=== PATIENT | female | born 1995 ===

== ENCOUNTER 2018-02-14 19:46 | Emergency (ER) | payer SELFPAY ==
[2018-02-14 20:00] VITALS: RESP 18; O2SAT 100
[2018-02-14 20:13] LABS: HCG,QUALITATIVE URINE NEGATIVE (NEGATIVE)
[2018-02-14 20:16] LABS: SQUAMOUS EPITHIAL 5 /hpf (0-5); URINE BACTERIA OCC (<OCC); URINE BILIRUBIN NEGATIVE (NEGATIVE); URINE BLOOD NEGATIVE (NEGATIVE); URINE CLARITY Hazy (Clear); URINE COLOR Yellow (YELLOW); URINE GLUCOSE (UA) NORMAL (Normal); URINE LEUKOCYTE ESTERASE TRACE Leu/uL (Negative); URINE PROTEIN NEGATIVE (NEGATIVE); URINE UROBILINOGEN NORMAL mg/dL (0.2-1.0)
[2018-02-14] MEDS ORDERED: Sodium Chloride 0.9% 1,000 ML IV ONE (20:51)
--- NOTE | 2018-02-14 21:01 | C.PDOC ---
History Of Present Illness 22 year old female presents to the ED c/o fever, nausea, vomit, abdominal pain and back pain for the past 2 days. Patient states back pain feels like someone is hitting her, mostly located in the mid back and on the right side. Patient also c/o nausea, vomit and abdominal pain as well that has not allowed her to eat anything today. Patient states she measured her temperature once at home and it was 100.4, took Tylenol at 15:00 today. Patient's LMP was on 01/19/18. Patient denies alcohol, drug and cigarette use. Patient denies diarrhea, weakness, numbness, urinary/bowel incontinence, saddle anesthesia. Time Seen by Provider: 02/14/18 20:22 Chief Complaint (Nursing): Fever History Per: Patient History/Exam Limitations: no limitations Onset/Duration Of Symptoms: Days Current Symptoms Are (Timing): Still Present Sick Contacts (Context): None Associated Symptoms: Fever, Vomiting Ear Symptoms: Bilateral: None Recent travel outside of the [place]: No Additional History Per: Patient Past Medical History Reviewed: Historical Data, Nursing Documentation, Vital Signs Vital Signs: Last Vital Signs Temp 98.3 F 02/14/18 19:57 Pulse 112 H 02/14/18 19:57 Resp 18 02/14/18 19:57 BP 102/64 02/14/18 19:57 Pulse Ox 100 02/14/18 19:57 - Medical History PMH: No Chronic Diseases Surgical History: No Surg Hx Family History: States: Unknown Family Hx - Social History Hx Alcohol Use: No Hx Substance Use: No - Immunization History Hx Tetanus Toxoid Vaccination: No Hx Influenza Vaccination: No Hx Pneumococcal Vaccination: No Review Of Systems Constitutional: Positive for: Fever. Negative for: Chills Cardiovascular: Negative for: Chest Pain Respiratory: Negative for: Cough, Shortness of Breath Gastrointestinal: Positive for: Vomiting, Abdominal Pain Genitourinary: Positive for: Dysuria Musculoskeletal: Positive for: Back Pain Skin: Negative for: Rash Neurological: Negative for: Weakness, Numbness Physical Exam - Physical Exam Appears: Non-toxic, No Acute Distress Skin: Normal Color, Warm, Dry Head: Atraumatic, Normacephalic Eye(s): bilateral: Normal Inspection Ear(s): Bilateral: Normal Nose: No Discharge Oral Mucosa: Moist Throat: Normal, No Erythema, No Exudate Chest: Symmetrical Cardiovascular: Rhythm Regular (tachycardic), No Murmur Respiratory: Normal Breath Sounds, No Rales, No Rhonchi, No Wheezing Gastrointestinal/Abdominal: Soft, No Tenderness, No Guarding, No Rebound Back: No CVA Tenderness, No Vertebral Tenderness, Paraspinal Tenderness (diffuse ) Extremity: Normal ROM, No Tenderness, No Swelling Neurological/Psych: Oriented x3, Normal Speech, Normal Cognition, Normal Motor, Normal Sensation Gait: Steady ED Course And Treatment O2 Sat by Pulse Oximetry: 100 (ON RA) Pulse Ox Interpretation: Normal Medical Decision Making Medical Decision Making: Impression: back pain, abdominal pain, fever Plan: * Labs * Reglan 10 mg IVP * Urine culture * UA Disposition - Disposition Referrals: Non [facility] Provider, [Primary Care Provider] - - PA / YIELD LOSS INSPECTOR / Resident Statement MD/DO has reviewed & agrees with the documentation as recorded. - Scribe Statement The provider has reviewed the documentation as recorded by the Scribe Kelechi Gaston All medical record entries made by the Scribe were at my direction and personally dictated by me. I have reviewed the chart and agree that the record accurately reflects my personal performance of the history, physical exam, medical decision making, and the department course for this patient. I have also personally directed, reviewed, and agree with the discharge instructions and disposition.
[2018-02-14] MEDS ORDERED: Sodium Chloride 0.9% 1,000 ML ONE (21:06)
[2018-02-14 21:11] LABS: BASO # 0.1 K/uL (0.0-0.2); BASO % 0.5 % (0.0-2.0); HEMOGLOBIN 13.2 g/dL (11.0-16.0); LYMPH # 1.8 K/uL (1.0-4.3); LYMPH % 10.9 % (20.0-40.0); MEAN CORPUSCULAR HEMOGLOBIN 29.4 pg (27.0-31.0); MEAN CORPUSCULAR HGB CONC 34.2 g/dL (33.0-37.0); MEAN PLATELET VOLUME 7.3 fL (7.2-11.7); MONO # 1.2 K/uL (0.0-0.8); MONO % 7.1 % (0.0-10.0); NEUT # 13.2 K/uL (1.8-7.0); NEUT % 81.5 % (50.0-75.0); RBC 4.5 Mil/uL (3.80-5.20); RED CELL DISTRIBUTION WIDTH 12.7 % (11.5-14.5); WHITE BLOOD COUNT 16.2 K/uL (4.8-10.8)
--- NOTE | 2018-02-14 21:18 | C.PDOC ---
History Of Present Illness <Alfreda Szymanski - Last Filed: 02/14/18 22:34> <Chris Armas - Last Filed: 02/14/18 23:52> 22 year old female presents to the ED c/o fever, nausea, vomit, abdominal pain and back pain for the past 2 days. Patient states back pain feels like someone is hitting her, mostly located in the mid back and on the right side. Patient also c/o nausea, vomit and abdominal pain as well that has not allowed her to eat anything today. Patient states she measured her temperature once at home and it was 100.4, took Tylenol at 15:00 today. Patient's LMP was on 01/19/18. Patient denies alcohol, drug and cigarette use. Patient denies diarrhea, weakness, numbness, urinary/bowel incontinence, saddle anesthesia. (Alfreda Szymanski) History Per: Patient History/Exam Limitations: no limitations Onset/Duration Of Symptoms: Days Current Symptoms Are (Timing): Still Present Location Of Pain: Throat, Diffuse Myalgias Sick Contacts (Context): None Associated Symptoms: Fever, Nasal Congestion Ear Symptoms: Bilateral: None Recent travel outside of the [place]: No Additional History Per: Patient <Alfreda Szymanski - Last Filed: 02/14/18 22:34> <Chris Armas - Last Filed: 02/14/18 23:52> Time Seen by Provider: 02/14/18 20:22 Chief Complaint (Nursing): Fever Past Medical History Reviewed: Historical Data, Nursing Documentation, Vital Signs - Medical History PMH: No Chronic Diseases Surgical History: No Surg Hx Family History: States: Unknown Family Hx - Social History Hx Alcohol Use: No Hx Substance Use: No - Immunization History Hx Tetanus Toxoid Vaccination: No Hx Influenza Vaccination: No Hx Pneumococcal Vaccination: No <Alfreda Szymanski - Last Filed: 02/14/18 22:34> Vital Signs: Last Vital Signs Temp 98.3 F 02/14/18 19:57 Pulse 112 H 02/14/18 19:57 Resp 18 02/14/18 19:57 BP 102/64 02/14/18 19:57 Pulse Ox 100 02/14/18 22:34 Review Of Systems Constitutional: Positive for: Fever Cardiovascular: Negative for: Chest Pain Respiratory: Negative for: Shortness of Breath Gastrointestinal: Positive for: Nausea, Vomiting, Abdominal Pain Musculoskeletal: Positive for: Back Pain Skin: Negative for: Rash Neurological: Negative for: Weakness, Numbness <Alfreda Szymanski - Last Filed: 02/14/18 22:34> Physical Exam - Physical Exam Appears: Non-toxic, No Acute Distress (uncomfortable) Skin: Normal Color, Warm, Dry Head: Atraumatic, Normacephalic Eye(s): bilateral: Normal Inspection Ear(s): Bilateral: Normal Nose: No Discharge Oral Mucosa: Moist Throat: Normal, No Erythema, No Exudate Neck: Normal ROM, Supple Chest: Symmetrical Cardiovascular: Rhythm Regular, No Murmur Respiratory: Normal Breath Sounds, No Rales, No Rhonchi, No Wheezing Gastrointestinal/Abdominal: Soft, No Tenderness, No Guarding, No Rebound Back: No CVA Tenderness, No Vertebral Tenderness, Paraspinal Tenderness ( bilateral) Extremity: Normal ROM Neurological/Psych: Oriented x3, Normal Speech, Normal Cognition Gait: Steady <Alfreda Szymanski - Last Filed: 02/14/18 22:34> ED Course And Treatment - Laboratory Results Result Diagrams: 02/14/18 21:01 02/14/18 21:01 O2 Sat by Pulse Oximetry: 100 (On RA) Pulse Ox Interpretation: Normal <Alfreda Szymanski - Last Filed: 02/14/18 22:34> - Laboratory Results Result Diagrams: 02/14/18 21:01 02/14/18 21:01 Lab Interpretation: Abnormal (UA 10 WBC's,) Urine POC: Negative - CT Scan/US CT Abdomen& Pelvis Other Rad Studies (CT/US): Read By Radiologist, Radiology Report Reviewed CT/US Interpretation: IMPRESSION: Faint hypoattenuating wedge-shaped area in the lateral left kidney with haziness in the adjacent fat. Finding suggest pyelonephritis. Recommend correlation with urinalysis. Progress Note: signed over @ 2230 to f/u CT for L flank pain. CT ? c/w pyelonephritis, pt with leukocytosis of 16K and only 10 WBC's in urine. Will treat empirically with Keflex for 10 days. U-cult sent <Chris Armas - Last Filed: 02/14/18 23:52> Medical Decision Making <Alfreda Szymanski - Last Filed: 02/14/18 22:34> <Chris Armas - Last Filed: 02/14/18 23:52> Medical Decision Making: Impression: back pain, abdominal pain, fever Plan: Labs Reglan 10 mg IVP Urine culture UA (Alfreda Szymanski) Disposition <Alfreda Szymanski - Last Filed: 02/14/18 22:34> Doctor Will See Patient In The: Office Counseled Patient/Family Regarding: Studies Performed, Diagnosis - Disposition Disposition Time: 23:51 <Chris Armas - Last Filed: 02/14/18 23:52> - Disposition Referrals: Non [facility] Provider, [Primary Care Provider] - Disposition: HOME/ ROUTINE Condition: GOOD Forms: [facility] (Bengali) - Clinical Impression Clinical Impression: Flank pain - PA / TAPPER SUPERVISOR / Resident Statement MD/DO has reviewed & agrees with the documentation as recorded. - Scribe Statement The provider has reviewed the documentation as recorded by the Scribe <Alfreda Szymanski - Last Filed: 02/14/18 22:34> <Chris Armas - Last Filed: 02/14/18 23:52> - Scribe Statement Kelechi Gaston All medical record entries made by the Scribe were at my direction and personally dictated by me. I have reviewed the chart and agree that the record accurately reflects my personal performance of the history, physical exam, medical decision making, and the department course for this patient. I have also personally directed, reviewed, and agree with the discharge instructions and disposition. (Alfreda Szymanski)
[2018-02-14 21:20] LABS: ALB/GLOB RATIO 1.1 (1.0-2.1); ALBUMIN 4.4 g/dL (3.5-5.0); ALT/SGPT 16 U/L (9-52); AST/SGOT 17 U/L (14-36); BLOOD UREA NITROGEN 10 mg/dL (7-17); CALCIUM 9.2 mg/dl (8.6-10.4); GFR AFRICAN-AMERICAN > 60; GFR NON-AFRICAN AMERICAN > 60; LIPASE 36 U/L (23-300)
[2018-02-14] MEDS ORDERED: Iohexol 240 (50 ml) PO STA (21:26)
[2018-02-14] MEDS ORDERED: Iohexol 240 (50 ml) ONE (21:39)
[2018-02-14] MEDS ORDERED: Iodixanol 320 MG/ML 100 ML BOTTLE IV ONE (21:53)
--- NOTE | 2018-02-14 23:40 | CT ---
EXAM: CT Abdomen and Pelvis With Intravenous Contrast EXAM DATE/TIME: 02/14/2018 9:27 PM CLINICAL HISTORY: 22 years old, female; Pain; Abdominal pain; Epigastric; Additional info: Bilateral back pain. Elevated wbc TECHNIQUE: Axial computed tomography images of the abdomen and pelvis with intravenous contrast. All CT scans at this facility use one or more dose reduction techniques, viz.: automated exposure control; ma/kV adjustment per patient size (including targeted exams where dose is matched to indication; i.e. head); or iterative reconstruction technique. Coronal and sagittal reformatted images were created and reviewed. CONTRAST: 100 mL of visipaque 320 administered intravenously. COMPARISON: No relevant prior studies available. FINDINGS: Umbilical ring. The liver is normal. The spleen is normal. The pancreas is normal. No gallstones. Slight fullness of the renal pelves bilaterally. There is an ill-defined, approximately 2 cm, slightly wedge-shaped area of low attenuation in the posterior lateral left kidney (coronal image 70) with stranding in the adjacent fat. Findings suggest pyelonephritis. Incomplete distention of the urinary bladder. The bowel appears normal. A normal appendix is identified axial images 124 - 134, coronal images 48 through 57. Bilateral ovarian follicles are noted. IMPRESSION: Faint hypoattenuating wedge-shaped area in the lateral left kidney with haziness in the adjacent fat. Finding suggest pyelonephritis. Recommend correlation with urinalysis.
[2018-02-14 23:58] VITALS: BP 113/62; PULSE 108; TEMP 102.2
== END 2018-02-15 00:20 | disposition home or self-care (01) ==
LOC: C.ER 19:46 → SUPCPDRO 19:46 → C.ER 02-15 00:20
DX: R10.9 Unspecified abdominal pain (principal)
CPT/HCPCS: 74177; 80053; 81001; 83690; 84703; 85025; 87086; 96361; 96374; 99284; J2765; J7040; Q9966; Q9967